=== PATIENT | male | born 1945 | race American Indian/Alaskan Native ===

== ENCOUNTER 2018-11-30 06:07 | Day surgery (SDC) | payer MEDICARE ==
[2018-11-30] MEDS ORDERED: ECOTRIN PO ONE (06:30)
[2018-11-30] MEDS ORDERED: NACL 0.9% 500 ML 500 ML IV SCH (07:00)
[2018-11-30 07:17] LABS: Basophils # (Auto) 0.1 K/mm3 (0.0-0.1); Basophils % (Auto) 1.2 % (0.0-1.8); Eosinophils # (Auto) 0.1 K/mm3 (0.0-0.4); Eosinophils % (Auto) 2.3 % (0.0-4.3); Hematocrit 39.6 % (35.5-45.6); Hemoglobin 12.7 gm/dl (11.8-15.2); Lymphocytes # (Auto) 1.4 K/mm3 (1.2-5.4); Lymphocytes % (Auto) 26.2 % (13.4-35.0); Mean Corpuscular HGB Conc 32 % (32-34); Mean Corpuscular Volume 76 fl (84-94); Monocytes # (Auto) 0.6 K/mm3 (0.0-0.8); Monocytes % (Auto) 11.3 % (0.0-7.3); Platelet Count 166 K/mm3 (140-440); Red Cell Distribution Width 15.7 % (13.2-15.2)
[2018-11-30 07:25] LABS: INR 0.96 (0.87-1.13)
[2018-11-30 07:26] LABS: Partial Thromboplastin Time 27.8 Sec. (24.2-36.6)
[2018-11-30 07:28] LABS: BUN/Creatinine Ratio 13; Blood Urea Nitrogen 13 mg/dL (9-20); Hemolysis Index 8
[2018-11-30] MEDS ORDERED: SUBLIMAZE ONE (08:55)
[2018-11-30] MEDS ORDERED: VERSED ONE (08:55)
[2018-11-30] MEDS ORDERED: HEPARIN/NS 5000 UNIT/500ML(CATH LAB) 1,000 ML IR ONE (08:56)
[2018-11-30] MEDS ORDERED: HEPARIN 10,000 UNITS/10 ML ONE (08:56)
[2018-11-30] MEDS ORDERED: NITROGLYCERIN SYRINGE 3 ML ONE (08:57)
[2018-11-30] MEDS ORDERED: CALAN ONE (08:57)
[2018-11-30] MEDS ORDERED: XYLOCAINE 2% INFILTRATI ONE (08:57)
--- NOTE | 2018-11-30 10:11 | Cardiac Catherization Report ---
CARDIAC CATHETERIZATION REASON FOR PROCEDURE: The patient is a 73-year-old man who is referred for an outpatient cardiac catheterization. INDICATION: Abnormal stress test with thallium. PROCEDURE: 1. Left heart catheterization. 2. Selective left and right coronary angiography. 3. Left ventricular angiography. 4. Sedation time starts 09:16, ends 09:47. The patient was prepped and draped in a sterile fashion after informed consent. The right radial cath site was prepped and draped after a negative Luis's test. The right radial artery was entered using Seldinger technique followed by placement of a 6-Greenlandic hydrophilic sheath. Routine radial cocktail was administered via the sheath. Due to severe tortuosity in the brachiocephalic trunk and the arch of the aorta, there was a consistent challenge with catheter manipulation. Ultimately, the left coronary angiography was performed using a #3.5 left Rick, and a #4 right Rick was used for right coronary angiography. A pigtail catheter was used for left ventricle angiography. The catheters were removed, sheath removed, and hemostasis achieved using a TR band. The patient was returned to the postprocedure unit in stable condition. There were no complications. FINDINGS: HEMODYNAMICS: Left ventricle end-diastolic pressure was 25, following coronary angiography. Ascending aortic pressure was 135/75. There was no significant pressure gradient or pullback across the aortic valve. CORONARY ANGIOGRAPHY: There was mild ostial narrowing of the left main coronary artery. There were mild luminal irregularities of the proximal left anterior descending artery. Otherwise, the left main, left anterior descending artery, circumflex artery and their branches were all angiographically normal. The right coronary artery was dominant. This vessel contained mild luminal irregularities in its proximal segment, otherwise angiographically normal. The left ventricle was mildly to moderately dilated. There was at least moderate left ventricular systolic dysfunction with diffuse hypokinesis. Left ventricular ejection fraction estimated at 35-40%. CONCLUSION: 1. Mild irregularities as noted above, otherwise angiographically normal coronary arteries. 2. Dilated nonischemic cardiomyopathy, at least moderate left ventricular systolic dysfunction, ejection fraction 35-40%. RECOMMENDATION: Risk factor modification and medical therapy. [facility]# [id number] CA/NTS
--- NOTE | 2018-11-30 10:12 | Discharge Summary ---
Short Stay Discharge Plan Activity: advance as tolerated Weight Bearing Status: Full Weight Bearing Diet: low cholesterol, low salt, diabetic Wound: keep clean and dry Special Instructions: no heavy lifting (3 days) Follow up with: PRIMARY CARE, [Primary Care Provider] - 7 Days KERMIT ALMONTE MD [Staff Physician] - 7 Days
[2018-11-30] MEDS ORDERED: NACL 0.9% 1000 ML 1,000 ML IV SCH (11:00)
[2018-11-30 14:35] VITALS: BP 147/81
== END 2018-11-30 14:05 | disposition home or self-care (01) ==
LOC: CATHLABREC 06:07
PROVIDERS: ATTEND Internal Medicine
DX: I25.10 Atherosclerotic heart disease of native coronary artery without angina pectoris (principal); I42.0 Dilated cardiomyopathy; I10 Essential (primary) hypertension; M19.90 Unspecified osteoarthritis, unspecified site; E78.00 Pure hypercholesterolemia, unspecified; D64.9 Anemia, unspecified; E11.40 Type 2 diabetes mellitus with diabetic neuropathy, unspecified; Z79.899 Other long term (current) drug therapy; Z79.4 Long term (current) use of insulin; Z79.82 Long term (current) use of aspirin; Z88.8 Allergy status to other drugs, medicaments and biological substances; Z95.810 Presence of automatic (implantable) cardiac defibrillator; Z86.73 Personal history of transient ischemic attack (TIA), and cerebral infarction without residual deficits
CPT/HCPCS: 36415; 80048; 85025; 85610; 85730; 93005; 93010; 93458; 99156; 99157; C1894; J1644; J2250; J3010; J7030; J7040; Q9967

== ENCOUNTER 2021-02-01 12:12 | Emergency (ER) | payer MEDICARE ==
[2021-02-01 12:33] VITALS: BP 113/68
--- NOTE | 2021-02-01 13:20 | Event Note ---
ED Screening Note Date of service: 02/01/21 Time: 13:16 ED Screening Note: 76-year-old -Finnish male presents to the emergency room complaining of neck and back pain after straining from having a colonoscopy. Patient was seen in urgent care had plain films which shows degenerative cervical disc disease. He was discharged with pain medicine and muscle relaxant. He was told to come to the emergency room for CT scan. This initial assessment/diagnostic orders/clinical plan/treatment(s) is/are subject to change based on patients health status, clinical progression and re- assessment by fellow clinical providers in the ED. Further treatment and workup at subsequent clinical providers discretion. Patient/guardian urged not to elope from the ED as their condition may be serious if not clinically assessed and managed. Initial orders include:
[2021-02-01 15:00] LABS: Basophils # (Auto) 0.1 K/mm3 (0.0-0.1); Eosinophils # (Auto) 0.1 K/mm3 (0.0-0.4); Eosinophils % (Auto) 1.9 % (0.0-4.3); Hematocrit 39.1 % (35.5-45.6); Hemoglobin 12.4 gm/dl (11.8-15.2); Lymphocytes # (Auto) 1.7 K/mm3 (1.2-5.4); Lymphocytes % (Auto) 26.3 % (13.4-35.0); Mean Corpuscular HGB Conc 32 % (32-34); Mean Corpuscular Volume 78 fl (84-94); Monocytes # (Auto) 0.7 K/mm3 (0.0-0.8); Monocytes % (Auto) 11.1 % (0.0-7.3); Platelet Count 151 K/mm3 (140-440); Red Blood Count 5.01 M/mm3 (3.65-5.03); Red Cell Distribution Width 15.6 % (13.2-15.2)
[2021-02-01 15:25] LABS: Alanine Aminotransferase 19 units/L (7-56); Albumin 3.9 g/dL (3.9-5); BUN/Creatinine Ratio 11; Blood Urea Nitrogen 10 mg/dL (9-20); Calcium 9.1 mg/dL (8.4-10.2); Hemolysis Index 3
== END 2021-02-01 16:42 ==
LOC: ED 12:12
DX: M54.2 Cervicalgia (principal); Z53.21 Procedure and treatment not carried out due to patient leaving prior to being seen by health care provider
CPT/HCPCS: 36415; 80053; 85025

== ENCOUNTER 2021-02-02 10:24 | Emergency (ER) | payer MEDICARE ==
[2021-02-02 11:17] VITALS: BP 112/55
--- NOTE | 2021-02-02 11:18 | Event Note ---
ED Screening Note Date of service: 02/02/21 Time: 11:17 ED Screening Note: Patient states he was seen here from [facility] urgent care after a mass was found in his neck on x-ray yesterday History of diabetes Denies dysphagia Pain in left side of neck per patient This initial assessment/diagnostic orders/clinical plan/treatment(s) is/are subject to change based on patients health status, clinical progression and re- assessment by fellow clinical providers in the ED. Further treatment and workup at subsequent clinical providers discretion. Patient/guardian urged not to elope from the ED as their condition may be serious if not clinically assessed and managed. Initial orders include: Labs
--- NOTE | 2021-02-02 12:03 | Emergency Department Report ---
ED Neck Pain/Injury HPI - General Chief Complaint: Neck Pain/Injury Stated Complaint: CT SCAN Time Seen by Provider: 02/02/21 11:16 Mode of arrival: Ambulatory Limitations: No Limitations - History of Present Illness Initial Comments: 76-year-old male presents to the ER today with complaints of swelling to the lateral aspect of his neck. Patient states that around January 28, he was prepping himself for colonoscopy, and was doing a lot of straining. He states that he noticed that they started having some soreness to the left, right and posterior aspect of his neck. He states that the next day after the procedure he went to [facility] urgent care where they noticed that he had a swollen masslike area to the left lateral aspect of his neck. They did x-rays of the neck which showed mild DJD but no other significant findings were found. Patient states that he was told he may need to get a CT scan to further evaluate that swollen area to the left lateral neck. He states that prior to January 28 he has not noticed any swelling to his neck. He states that he has been taking Tylenol for his neck soreness which does help his pain. He denies any difficulty breathing, difficulty swallowing, chest pain, swelling in his arms, numbness, tingling or focal weakness, headache or dizziness. He denies any injury to his neck. He states that he feels fine right now he is just concerned about the swollen area to his neck and so he decided to come to the ER to get it checked out. MD Complaint: other (Left lateral neck swelling) -: days(s) (Around January 28) - Related Data Home Medications Medication Instructions Recorded Confirmed Last Taken Amlodipine Besylate [Norvasc] 10 mg PO DAILY 08/11/16 11/30/18 11/29/18 Aspirin EC [Halfprin EC] 81 mg PO QDAY 08/11/16 11/30/18 11/29/18 Atorvastatin Calcium [Lipitor] 80 mg PO 08/11/16 11/29/18 Gabapentin 300 mg PO TID 08/11/16 11/30/18 11/29/18 Insulin Aspart (Nf) [NovoLOG 20 units SQ AC 08/11/16 11/30/18 11/29/18 Flexpen] Insulin Glargine [Lantus VIAL] 45 units SC BID 08/11/16 11/30/18 11/29/18 Metoprolol [Lopressor TAB] 50 mg PO BID 08/11/16 11/30/18 11/29/18 PARoxetine HCl [Paxil] 30 mg PO QDAY 08/11/16 11/30/18 11/30/18 05:30 Ferrous Sulfate [Iron 325 MG] 325 mg PO DAILY 11/30/18 11/30/18 11/29/18 Allergies Allergy/AdvReac Type Severity Reaction Status Date / Time lisinopril Allergy Swelling Verified 02/01/21 12:29 ED Review of Systems ROS: Stated complaint: CT SCAN Other details as noted in HPI Comment: All other systems reviewed and negative Constitutional: denies: chills, fever Eyes: denies: eye pain, eye discharge, vision change ENT: denies: ear pain, throat pain Respiratory: denies: cough, shortness of breath, SOB with exertion, SOB at rest, stridor, wheezing Cardiovascular: denies: chest pain, palpitations Gastrointestinal: denies: abdominal pain, nausea, vomiting, diarrhea, constipation, hematemesis, melena, hematochezia Genitourinary: denies: urgency, dysuria Musculoskeletal: other (Swollen area left neck; left neck soreness). 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 GLAUCOMA. CHOLESTEROL. NEUROPATHY - Surgical History Hx Pacemaker: Yes Hx Internal Defibrillator: Yes - Social History Smoking Status: Never Smoker Substance Use Type: None - Medications Home Medications: Home Medications Medication Instructions Recorded Confirmed Last Taken Type Amlodipine Besylate [Norvasc] 10 mg PO DAILY 08/11/16 11/30/18 11/29/18 History Aspirin EC [Halfprin EC] 81 mg PO QDAY 08/11/16 11/30/18 11/29/18 History Atorvastatin Calcium [Lipitor] 80 mg PO 08/11/16 11/29/18 History Gabapentin 300 mg PO TID 08/11/16 11/30/18 11/29/18 History Insulin Aspart (Nf) [NovoLOG 20 units SQ AC 08/11/16 11/30/18 11/29/18 History Flexpen] Insulin Glargine [Lantus VIAL] 45 units SC BID 08/11/16 11/30/18 11/29/18 History Metoprolol [Lopressor TAB] 50 mg PO BID 08/11/16 11/30/18 11/29/18 History PARoxetine HCl [Paxil] 30 mg PO QDAY 08/11/16 11/30/18 11/30/18 05:30 History Ferrous Sulfate [Iron 325 MG] 325 mg PO DAILY 11/30/18 11/30/18 11/29/18 History ED Physical Exam - General Limitations: No Limitations General appearance: alert, in no apparent distress - Head Head exam: Present: atraumatic, normocephalic, normal inspection - Eye Eye exam: Present: normal appearance, PERRL, EOMI Pupils: Present: normal accommodation - ENT ENT exam: Present: normal exam, mucous membranes moist - Neck Neck exam: Present: full ROM. Absent: tenderness, meningismus, thyromegaly - Expanded Neck Exam Expanded Neck exam: Present: other (There is a moderate to large swollen area lateral aspect of the left neck just above the left clavicle without any tenderness to palpation, no erythema or bruising, no warmth, no crepitus, is not pulsatile and there is no bruits. It is soft and spongy and not mobile). Absent: tenderness, anterior neck swelling, thyroid mass, carotid bruit, tracheal deviation - Respiratory Respiratory exam: Present: normal lung sounds bilaterally. Absent: respiratory distress, wheezes, rales, rhonchi, chest wall tenderness - Cardiovascular Cardiovascular Exam: Present: regular rate, normal rhythm, normal heart sounds - GI/Abdominal GI/Abdominal exam: Present: soft. Absent: distended, tenderness, guarding, rebound - Neurological Exam Neurological exam: Present: alert, oriented X3, CN II-XII intact, normal gait - Psychiatric Psychiatric exam: Present: normal affect, normal mood - Skin Skin exam: Present: intact ED Course Vital Signs 02/02/21 11:15 Temperature 98.5 F Pulse Rate 60 Respiratory 18 Rate Blood Pressure 112/55 O2 Sat by Pulse 97 Oximetry ED Medical Decision Making - Lab Data Result diagrams: 02/02/21 11:51 02/02/21 11:51 - Radiology Data Radiology results: report reviewed Patient: DENISE SUTHERLAND MR#: [id number] : 1945 Acct:[id number] Age/Sex: 76 / M A DM Date: 02/02/21 Loc: ED Attending Dr: Ordering Physician: CHRISTINE WATKINS Date of Service: 02/02/21 Procedure(s): CT neck w con Accession Number(s): [id number] cc: CHRISTINE WATKINS CT NECK WITH CONTRAST HISTORY: Swelling in left neck just above the left clavicle COMPARISON: None. TECHNIQUE: Routine CT of the neck is performed following intravenous contrast. Sagittal and coronal reformatted images. All CT scans at this location are performed using CT dose reduction for ALARA by means of automated exposure control. CONTRAST: 100 mL Omnipaque 300 FINDINGS: Skull Base: No significant abnormality. Parotid, Carotid, Retropharyngeal, Prevertebral, Pharyngeal Mucosal, and Flooring Salesperson Spaces: No abnormal mass, enhancing lesion or other significant abnormality. Airway: Patent and without significant abnormality. Lymphatics: No lymphadenopathy. Vasculature: No significant abnormality. Osseous Structures: Moderate multilevel discogenic DJD. No fracture or bony lesion. Additional findings: No evidence for mass, adenopathy or fluid collection in the left supraclavicular region. Supraclavicular fat is slightly prominent bilaterally but symmetric. IMPRESSION: 1. No significant abnormality. CT CHEST WITH CONTRAST INDICATION / CLINICAL INFORMATION: swelling left neck/just above clavicle. TECHNIQUE: Axial CT images were obtained through the chest after 100 cc Omnipaque 300 IV c ontrast. Sagittal and coronal reformatted images. All CT scans at this location are performed using CT dose reduction for ALARA by means of automated exposure control. COMPARISON: None available. FINDINGS: HEART: No significant abnormality. A 2-lead pacemaker device is in position. THORACIC AORTA: No significant abnormality. MEDIASTINUM and MARIBEL: No significant abnormality. LUNGS: No acute air space or interstitial disease. PLEURA: No significant pleural effusion. No pneumothorax. SKELETAL SYSTEM: No significant abnormality. UPPER ABDOMEN: No significant abnormality. ADDITIONAL FINDINGS: A 4.0 x 1.3 cm intramuscular lipoma is identified in the lateral left pectoralis muscle just inferior to the lateral left clavicle. IMPRESSION: Essentially unremarkable CT chest. No evidence for suspicious mass or adenopathy. Lungs clear. An intramuscular lipoma is identified in the left pectoralis major muscle as described. Could this represent area of swelling Signer Name: Ervin rGigsby Jr, MD Signed: 02/02/2021 12:51 PM Workstation Name: [id number] Transcribed By: AQUILES Dictated By: ERVIN GRIGSBY JR, MD Electronically Authenticated By: ERVIN GRIGSBY JR, MD Signed Date/Time: 02/02/21 1251 DD/ 1244 TD/TT: - Medical Decision Making CT soft tissue neck and chest shows that patient has a lipoma in the area that he is concerned about. It is consistent with what is seen on physical exam. No mass or any other acute abnormalities noted on the CT chest or soft tissue neck. Discussed the CT results with patient. His labs are all within normal limits. Reassured him that other than a lipoma no other acute abnormalities were seen on his CTs. Patient was given a copy of his CT results. No further work-up, admission or emergent consult indicated at this time. Patient is well- appearing, not toxic, he is not in any acute distress, he is awake, alert, oriented x3 and is neurologically intact with a normal gait. His vital signs are stable. Patient expressed understanding of CT results, discharge instructions and agree with plan. Patient was stable at time of discharge. Critical care attestation.: If time is entered above; I have spent that time in minutes in the direct care of this critically ill patient, excluding procedure time. ED Disposition Clinical Impression: Lipoma of neck Disposition: - TO HOME OR SELFCARE Is pt being admited?: No Does the pt Need Aspirin: No Condition: Stable Instructions: Lipoma Additional Instructions: I recommend that you follow-up with your primary care doctor this week. If this lipoma is starting to bother you he may have to refer you to a surgeon. Continue taking Tylenol as needed for pain. Return to the ER if symptoms changes or worsens in any way. Referrals: PRIMARY CAREMD [Primary Care Provider] - 3-5 Days Time of Disposition: 13:16
[2021-02-02 12:39] LABS: Basophils # (Auto) 0.1 K/mm3 (0.0-0.1); Eosinophils # (Auto) 0.1 K/mm3 (0.0-0.4); Eosinophils % (Auto) 2.4 % (0.0-4.3); Hematocrit 38.4 % (35.5-45.6); Hemoglobin 12.3 gm/dl (11.8-15.2); Lymphocytes # (Auto) 1.4 K/mm3 (1.2-5.4); Lymphocytes % (Auto) 25.8 % (13.4-35.0); Mean Corpuscular HGB Conc 32 % (32-34); Mean Corpuscular Volume 78 fl (84-94); Monocytes # (Auto) 0.7 K/mm3 (0.0-0.8); Monocytes % (Auto) 12.9 % (0.0-7.3); Platelet Count 167 K/mm3 (140-440); Red Blood Count 4.94 M/mm3 (3.65-5.03); Red Cell Distribution Width 14.7 % (13.2-15.2)
--- NOTE | 2021-02-02 12:56 | Cat Scan Report ---
CT NECK WITH CONTRAST HISTORY: Swelling in left neck just above the left clavicle COMPARISON: None. TECHNIQUE: Routine CT of the neck is performed following intravenous contrast. Sagittal and coronal r eformatted images. All CT scans at this location are performed using CT dose reduction for ALARA by travon bronson of automated exposure control. CONTRAST: 100 mL Omnipaque 300 FINDINGS: Skull Base: No significant abnormality. Parotid, Carotid, Retropharyngeal, Prevertebral, Pharyngeal Mucosal, and Cloud Engineer Spaces: No abnorm al mass, enhancing lesion or other significant abnormality. Airway: Patent and without significant abnormality. Lymphatics: No lymphadenopathy. Vasculature: No significant abnormality. Osseous Structures: Moderate multilevel discogenic DJD. No fracture or bony lesion. Additional findings: No evidence for mass, adenopathy or fluid collection in the left supraclavicular region. Supraclavicular fat is slightly prominent bilaterally but symmetric. IMPRESSION: 1. No significant abnormality. CT CHEST WITH CONTRAST INDICATION / CLINICAL INFORMATION: swelling left neck/just above clavicle. TECHNIQUE: Axial CT images were obtained through the chest after 100 cc Omnipaque 300 IV contrast. Sagittal and coronal reformatted images. All CT scans at this location are performed using CT dose reduction for A VIVEK by means of automated exposure control. COMPARISON: None available. FINDINGS: HEART: No significant abnormality. A 2-lead pacemaker device is in position. THORACIC AORTA: No significant abnormality. MEDIASTINUM and MARIBEL: No significant abnormality. LUNGS: No acute air space or interstitial disease. PLEURA: No significant pleural effusion. No pneumothorax. SKELETAL SYSTEM: No significant abnormality. UPPER ABDOMEN: No significant abnormality. ADDITIONAL FINDINGS: A 4.0 x 1.3 cm intramuscular lipoma is identified in the lateral left pectoralis muscle just inferior to the lateral left clavicle. IMPRESSION: Essentially unremarkable CT chest. No evidence for suspicious mass or adenopathy. Lungs clear. An intramuscular lipoma is identified in the left pectoralis major muscle as described. Could this re present area of swelling Signer Name: Ervin Flores Jr, MD Signed: 02/02/2021 12:51 PM Workstation Name: [id number]
[2021-02-02 13:03] LABS: Alanine Aminotransferase 24 units/L (7-56); BUN/Creatinine Ratio 11; Blood Urea Nitrogen 11 mg/dL (9-20); Calcium 9.3 mg/dL (8.4-10.2); Hemolysis Index 0
== END 2021-02-02 13:26 | disposition home or self-care (01) ==
LOC: ED 10:24
DX: D17.0 Benign lipomatous neoplasm of skin and subcutaneous tissue of head, face and neck (principal); I10 Essential (primary) hypertension; E11.9 Type 2 diabetes mellitus without complications; M19.90 Unspecified osteoarthritis, unspecified site; Z79.899 Other long term (current) drug therapy; Z88.8 Allergy status to other drugs, medicaments and biological substances
CPT/HCPCS: 36415; 70491; 71260; 80053; 85025; 99284; Q9967

== ENCOUNTER 2022-01-10 11:04 | Emergency (ER) | payer MEDICARE ==
[2022-01-10 12:13] LABS: Bacteria,Urine 1+ /HPF (Negative); Bilirubin,Urine NEG (Negative); Blood,Urine NEG (Negative); Color,Urine Yellow (Yellow); Mucus,Urine FEW /HPF; Protein,Urine <15 mg/dL mg/dL (Negative)
[2022-01-10] MEDS ORDERED: methylPREDNISolone ACETATE 80 MG/1 ML INJ IM ONE (12:50)
--- NOTE | 2022-01-10 12:52 | Emergency Department Report ---
ED Back Pain/Injury HPI - General Chief Complaint: Back Pain/Injury Stated Complaint: BACK PAIN Time Seen by Provider: 01/10/22 11:26 Source: patient Limitations: No Limitations - History of Present Illness Initial Comments: 76 yo comes to ER with a/c low back pain. No dysuria. no hematuria. no fever or chills. no abd pain. He has old injury to LB L4 area and had intermittent flares. This is his usual pain. No s/s cauda equina. no new fall or trauma MD Complaint: back pain - Related Data Home Medications Medication Instructions Recorded Confirmed Last Taken Amlodipine Besylate [Norvasc] 10 mg PO DAILY 08/11/16 11/30/18 11/29/18 Aspirin EC [Halfprin EC] 81 mg PO QDAY 08/11/16 11/30/18 11/29/18 Atorvastatin Calcium [Lipitor] 80 mg PO 08/11/16 11/29/18 Gabapentin 300 mg PO TID 08/11/16 11/30/18 11/29/18 Insulin Aspart (Nf) [NovoLOG 20 units SQ AC 08/11/16 11/30/18 11/29/18 Flexpen] Insulin Glargine [Lantus VIAL] 45 units SC BID 08/11/16 11/30/18 11/29/18 Metoprolol [Lopressor TAB] 50 mg PO BID 08/11/16 11/30/18 11/29/18 PARoxetine HCl [Paxil] 30 mg PO QDAY 08/11/16 11/30/18 11/30/18 05:30 Ferrous Sulfate [Iron 325 MG] 325 mg PO DAILY 11/30/18 11/30/18 11/29/18 Previous Rx's Medication Instructions Recorded Last Taken Type predniSONE [Deltasone] 20 mg PO DAILY #5 tablet 01/10/22 Unknown Rx Allergies Allergy/AdvReac Type Severity Reaction Status Date / Time lisinopril Allergy Swelling Verified 02/01/21 12:29 ED Review of Systems ROS: Stated complaint: BACK PAIN Other details as noted in HPI Comment: All other systems reviewed and negative ED Past Medical Hx - Past Medical History Previous Medical History?: Yes Hx Hypertension: Yes Hx Heart Attack/AMI: No Hx Diabetes: Yes Hx Arthritis: Yes Hx Psychiatric Treatment: Yes (DEPRESSION) Additional medical history: 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 GLAUCOMA. CHOLESTEROL. NEUROPATHY - Surgical History Past Surgical History?: Yes Hx Pacemaker: Yes Hx Internal Defibrillator: Yes - Family History Family history: no significant - Social History Smoking Status: Never Smoker Substance Use Type: None - Medications Home Medications: Home Medications Medication Instructions Recorded Confirmed Last Taken Type Amlodipine Besylate [Norvasc] 10 mg PO DAILY 08/11/16 11/30/18 11/29/18 History Aspirin EC [Halfprin EC] 81 mg PO QDAY 08/11/16 11/30/18 11/29/18 History Atorvastatin Calcium [Lipitor] 80 mg PO 08/11/16 11/29/18 History Gabapentin 300 mg PO TID 08/11/16 11/30/18 11/29/18 History Insulin Aspart (Nf) [NovoLOG 20 units SQ AC 08/11/16 11/30/18 11/29/18 History Flexpen] Insulin Glargine [Lantus VIAL] 45 units SC BID 08/11/16 11/30/18 11/29/18 History Metoprolol [Lopressor TAB] 50 mg PO BID 08/11/16 11/30/18 11/29/18 History PARoxetine HCl [Paxil] 30 mg PO QDAY 08/11/16 11/30/18 11/30/18 05:30 History Ferrous Sulfate [Iron 325 MG] 325 mg PO DAILY 11/30/18 11/30/18 11/29/18 History predniSONE [Deltasone] 20 mg PO DAILY #5 tablet 01/10/22 Unknown Rx ED Physical Exam - General Limitations: No Limitations General appearance: alert, in no apparent distress - Head Head exam: Present: atraumatic, normocephalic - Eye Eye exam: Present: normal appearance - ENT ENT exam: Present: mucous membranes moist - Neck Neck exam: Present: normal inspection - Respiratory Respiratory exam: Present: normal lung sounds bilaterally. Absent: respiratory distress - Cardiovascular Cardiovascular Exam: Present: regular rate, normal rhythm. Absent: systolic murmur, diastolic murmur, rubs, gallop - GI/Abdominal GI/Abdominal exam: Present: soft, normal bowel sounds - Rectal Rectal exam: Present: deferred - Extremities Exam Extremities exam: Present: normal inspection - Back Exam Back exam: Present: normal inspection - Neurological Exam Neurological exam: Present: alert, oriented X3 - Psychiatric Psychiatric exam: Present: normal affect, normal mood - Skin Skin exam: Present: warm, dry, intact, normal color. Absent: rash ED Course Vital Signs 01/10/22 01/10/22 11:23 13:16 Temperature 98.3 F Pulse Rate 62 60 Respiratory 18 16 Rate Blood Pressure 137/63 Blood Pressure 144/63 [Right] O2 Sat by Pulse 98 99 Oximetry ED Medical Decision Making - Medical Decision Making Vital Signs 01/10/22 01/10/22 11:23 13:16 Temperature 98.3 F Pulse Rate 62 60 Respiratory 18 16 Rate Blood Pressure 137/63 Blood Pressure 144/63 [Right] O2 Sat by Pulse 98 99 Oximetry Lab Results 01/10/22 Range/Units 11:46 Urine Color Yellow (Yellow) Urine Turbidity Clear (Clear) Urine pH 5.0 (5.0-7.0) Ur Specific [place] 1.025 (1.003-1.030) Urine Protein <15 mg/dl (Negative) mg/dL Urine Glucose (UA) >=500 (Negative) mg/dL Urine Ketones Tr (Negative) mg/dL Urine Blood Neg (Negative) Urine Nitrite Neg (Negative) Urine Bilirubin Neg (Negative) Urine Urobilinogen 2.0 (<2.0) mg/dL Ur Leukocyte Esterase Neg (Negative) Urine WBC (Auto) 1.0 (0.0-6.0) /HPF Urine RBC (Auto) 2.0 (0.0-6.0) /HPF Urine Bacteria (Auto) 1+ (Negative) /HPF Urine Mucus Few /HPF no abd pain no cva tenderness no hematuria no s/s cauda equina ambulatory and nad requesting steroid injection ua noted medicated with steroid IM Dc home with dc plan of care including diet/ activity/meds and follow up. He verbalizes understanding of plan of care. - Differential Diagnosis ro uti/k stone v chronic back pain Critical care attestation.: If time is entered above; I have spent that time in minutes in the direct care of this critically ill patient, excluding procedure time. ED Disposition Clinical Impression: Back pain Disposition: 01 HOME / SELF CARE / HOMELESS Is pt being admited?: No Does the pt Need Aspirin: No Condition: Stable Instructions: Chronic Back Pain, [id number] Additional Instructions: meds as ordered follow up with pcp referral below for local pcp Prescriptions: predniSONE [Deltasone] 20 mg PO DAILY #5 tablet Referrals: PRIMARY CARE,MD [Primary Care Provider] - 3-5 Days KJ SHANKAR MD [Staff Physician] - 3-5 Days Time of Disposition: 12:51
[2022-01-10 13:18] VITALS: BP 144/63
== END 2022-01-10 13:21 | disposition home or self-care (01) ==
LOC: ED 11:04
DX: M54.50 Low back pain, unspecified (principal); I10 Essential (primary) hypertension; E11.9 Type 2 diabetes mellitus without complications; M19.90 Unspecified osteoarthritis, unspecified site; F32.A Depression, unspecified; Z98.890 Other specified postprocedural states; Z91.09 Other allergy status, other than to drugs and biological substances
CPT/HCPCS: 81001; 96372; 99283; J1040

== ENCOUNTER 2022-02-21 10:39 | Emergency (ER) | payer MEDICARE | END 2022-02-21 10:45 | disposition left against medical advice (07) | LOC: ED 10:39 | DX: T14.90XA Injury, unspecified, initial encounter (principal); Z53.21 Procedure and treatment not carried out due to patient leaving prior to being seen by health care provider; W19.XXXA Unspecified fall, initial encounter; Y93.89 Activity, other specified; Y92.89 Other specified places as the place of occurrence of the external cause; Y99.8 Other external cause status ==